=== PATIENT | female | born 1940 | race American Indian/Alaskan Native ===

== ENCOUNTER 2018-06-19 07:14 | Day surgery (SDC) | payer MEDICARE, BC ==
[2018-06-19 08:03] VITALS: BMI 31.6
[2018-06-19] MEDS ORDERED: Lactated Ringer's 1,000 ML IV SCH (08:45)
[2018-06-19] MEDS ORDERED: Propofol 10 mg/ml Inj (20 ML) ONE (09:19)
[2018-06-19] MEDS ORDERED: ePHEDrine 50 mg/ml Inj ONE (09:56)
[2018-06-19 10:25] VITALS: RESP 18
[2018-06-19 11:13] VITALS: BP 149/76; PULSE 55; TEMP 98.2; O2SAT 94
== END 2018-06-19 12:50 | disposition home or self-care (01) ==
LOC: ENDO 07:14
PROVIDERS: ATTEND Specialist
DX: K31.7 Polyp of stomach and duodenum (principal); D12.3 Benign neoplasm of transverse colon; K44.9 Diaphragmatic hernia without obstruction or gangrene; K29.40 Chronic atrophic gastritis without bleeding; K57.30 Diverticulosis of large intestine without perforation or abscess without bleeding; D64.9 Anemia, unspecified; K64.8 Other hemorrhoids; I10 Essential (primary) hypertension; J44.9 Chronic obstructive pulmonary disease, unspecified; E03.9 Hypothyroidism, unspecified; Z98.0 Intestinal bypass and anastomosis status
CPT/HCPCS: 43239; 45385; 88305; 88342; J2001; J2704; J7040; J7120

== ENCOUNTER 2018-10-25 09:56 | Outpatient (CLI) | payer MEDICARE, BC | END 2018-10-25 09:57 | disposition home or self-care (01) | LOC: RAD 09:57 ==